=== PATIENT | female | born 1955 | race Caucasian/White ===

== ENCOUNTER 2019-05-29 20:30 | Emergency (ER) | payer OTHER, SELFPAY ==
[2019-05-29 20:34] VITALS: BP 103/85; PULSE 78; RESP 30; TEMP 36.3; O2SAT 97; BMI 26.0
[2019-05-29 21:20] LABS: Basophils % 0.4 %; Eosinophils % 0.1 %; Hematocrit 42.3 % (37.0-47.0); Hemoglobin 14.1 g/dL (11.5-15.3); Lymphocytes # 0.6 10^3/uL (0.8-4.8); Lymphocytes % 7.3 %; Mean Corpuscular HGB Conc 33.3 g/dL (30.0-36.0); Mean Corpuscular Hemoglobin 29.2 pg (28.0-34.0); Mean Corpuscular Volume 87.6 fL (81-99); Mean Platelet Volume 10.9 fL (7.4-10.4); Monocytes # 0.3 10^3/uL (0.2-0.9); Monocytes % 3.9 %; Neutrophils # 7.3 10^3/uL (1.8-7.7); Neutrophils % 88.1 %; Nucleated Red Blood Cells % 0 %; Platelet Count 206 10^3/cmm (130-400); Red Blood Count 4.83 10^6/uL (4.1-5.3); Red Cell Distribution Width 12.5 % (12.1-15.1); White Blood Count 8.2 10^3/uL (4.0-10.0)
[2019-05-29] MEDS: sodium chloride 0.9% 1,000 ML 999 ML IV (21:24)
[2019-05-29] MEDS: ondansetron 2 mg/ML SDV 2 mL 4 MG IVP (21:25)
--- NOTE | 2019-05-29 21:30 | W.ED.NAVMDI ---
HPI - Nausea/Vomiting/Diarrhea General: Chief complaint: Nausea/Vomiting/Diarrhea Stated complaint: n/v Time Seen by Provider: 05/29/19 20:55 Source: patient Mode of arrival: ambulatory Limitations: no limitations History of Present Illness: HPI Narrative: Patient is a 63-year-old female who presents to ED today with complaints of nausea, vomiting, and a migraine headache that began today. Patient states she has a history of migraine headaches and feels her headache currently feels similar. She denies abdominal pain but just has a empty nauseous feeling . She reports just a few episodes of actual vomiting and many episodes of dry heaving. Vomit has been nonbloody. She reports one episode of a loose stool earlier today. She has not been running fevers. Denies bad food exposure. MD elicited complaint: nausea and vomiting Onset (ago): hour(s) Associated nausea: Yes Associated abdominal pain: No Associated symtoms: Reports headache(s) and nausea; Denies change in vision, chest pain, dizziness, dysuria, fatigue, malaise, palpitations or syncope Review of Systems Const: Denies: fever, chills, body aches, fatigue or malaise Eyes: Denies: change in vision or blurry vision ENMT: Denies: enlarged tonsils or painful swallowing Card: Denies: chest pain, palpitations, irregular heart rhythm, lightheadedness, syncope or shortness of breath on exertion Resp: Denies: shortness of breath, productive cough or pain on inspiration GI: Reports: abdominal pain, nausea and vomiting; Denies: vomiting blood, difficulty swallowing, heartburn/indigestion, constipation, painful bowel movements, change in stool character, blood in stool or white/light colored stool : Denies: flank pain, difficulty urinating, painful urination, urinary frequency or urinary urgency Musc: Denies: neck pain, back pain or joint pain Skin/Breast: Denies: rash Neuro: Reports: headache; Denies: numbness in extremities, weakness in extremities, changes in sensation, lack of coordination, difficulty walking, dizziness, confusion, behavioral changes or slurred speech PFSH ED PFSH: Statuses (acute, chronic, etc) shown below reflect problem list status as previously entered and may not be historically accurate Social History Smoking and tobacco status: never smoked Physical Exam Const: COMMON NORMALS: no apparent distress, average body habitus, oriented x3, no limitations, healthy appearing, alert and well nourished HENMT: COMMON NORMALS: normocephalic, head/scalp atraumatic, hearing grossly normal bilaterally, external ears normal, EAC's normal, TM's normal bilaterally and oropharynx normal HEAD & SCALP: normocephalic and atraumatic EXTERNAL EAR: Yes external ears normal EXTERNAL AUDITORY CANAL: EAC's normal TYMPANIC MEMBRANE: TM's normal bilaterally THROAT: posterior oropharynx normal, tonsils normal and uvula midline Eye: COMMON NORMALS: PERRL and EOMs intact bilaterally PUPIL: Yes PERRL Neck/C-Spine: COMMON NORMALS: full ROM, no lymphadenopathy, supple and no meningeal signs Chest: COMMONS NORMALS: inspection of chest normal Resp: COMMON NORMALS: normal respiratory effort and clear to auscultation bilaterally AUSCULTATION: clear to auscultation bilaterally Cardio: COMMON NORMALS: regular rate and regular rhythm RATE: regular rate RHYTHM: regular rhythm GI: COMMON NORMALS: normal to inspection, nondistended, normoactive bowel sounds, soft to palpation, non-tender, no hepatosplenomegaly and no masses PALPATION: Yes soft and Yes no hepatosplenomegaly : COMMON NORMALS: Yes no CVA tenderness BLADDER/KIDNEY EXAM: Yes no CVA tenderness Back/Pelvis: COMMON NORMALS: no CVA tenderness and thoracic and lumbar spine normal to inspection Extremity: COMMON NORMALS: normal to inspection Neuro: EZRA COMA SCALE: document GCS findings Ezra coma scale eye opening: Spontaneous [place] coma scale verbal response: Orientated [place] coma scale motor response: Obey commands Ezra coma scale total score: 15 COMMON NORMALS: oriented x3, CN's II-XII intact bilaterally, moves all extremities, no focal motor deficits and no sensory deficits noted SENSORIUM/ORIENTATION: Yes alert MENINGEAL SIGNS: Yes no meningeal signs SPEECH: speech normal Skin: COMMON NORMALS: no rashes or lesions noted GENERAL SKIN EXAM: no rashes or lesions noted Course ED course: no vomiting while here; reports nausea/ZAMARRIPA improved after medications; she was given a liter of fluids here; labs are non-concerning; she is stable for DC Vital Signs: Vital signs: Vital Signs Temperature 97.4 F L 05/29/19 20:34 Pulse Rate 78 05/29/19 20:34 Respiratory Rate 18 05/29/19 21:41 Blood Pressure 103/85 05/29/19 20:34 Pulse Oximetry 98 05/29/19 21:41 MDM - Nausea/Vomiting/Diarrhea Lab Data: Labs: Lab Results 05/29/19 05/29/19 05/29/19 Range/Units 21:11 21:11 21:29 WBC 8.2 (4.0-10.0) 10^3/ uL RBC 4.83 (4.1-5.3) 10^6/u L Hgb 14.1 (11.5-15.3) g/dL Hct 42.3 (37.0-47.0) % MCV 87.6 (81-99) fL MCH 29.2 (28.0-34.0) pg MCHC 33.3 (30.0-36.0) g/dL RDW 12.5 (12.1-15.1) % Plt Count 206 (130-400) 10^3/c mm MPV 10.9 H (7.4-10.4) fL Neut % (Auto) 88.1 % Lymph % (Auto) 7.3 % [place] % (Auto) 3.9 % Eos % (Auto) 0.1 % Baso % (Auto) 0.4 % Neut # (Auto) 7.3 (1.8-7.7) 10^3/u L Lymph # (Auto) 0.6 L (0.8-4.8) 10^3/u L [place] # (Auto) 0.3 (0.2-0.9) 10^3/u L Eos # (Auto) 0.0 (0.0-0.8) 10^3/u L Baso # (Auto) 0.0 (0.0-0.1) 10^3/u L Nucleated RBC % (a uto) 0 % Nucleated RBCs # 0.0 /100WBC Sodium 136 (136-145) mmol/L Potassium 3.9 (3.5-5.1) mmol/L Chloride 99 (98-107) mmol/L Carbon Dioxide 21 L (22-29) mmol/L Anion Gap 19.9 H (5-19) BUN 18 (8-23) mg/dL Creatinine 0.7 (0.5-0.9) mg/dL GFR Calculation 84.2 L (90-130) mL/min Glucose 139 H (65-115) mg/dL Calcium 10.0 (8.5-10.5) mg/dL Total Bilirubin 0.7 (0.15-1.2) mg/dL AST 26 (0-32) U/L ALT 14 (0-33) U/L Alkaline Phosphata se 81 (35-105) IU/L Total Protein 8.0 (6.6-8.7) g/dL Albumin 4.5 (3.5-5.2) g/dL Globulin 3.5 (1.3-4.6) g/dL Lipase 23 (13-60) U/L Influenza Type A A g Negative (Negative) POC Influenza B Ag Negative (Negative) Discharge Plan Discharge Patient Disposition: Home, Self-Care Clinical Impression: Nausea & vomiting Qualifiers: Vomiting type: unspecified Vomiting Intractability: non-intractable Qualified Code(s): R11.2 - Nausea with vomiting, unspecified Condition: Stable Prescriptions: New ondansetron HCl [Zofran] 4 mg tablet 4 mg PO Q6H PRN (Reason: nausea and vomiting) Qty: 14 RF: 0 Discharge Orders: Discharge Order (Routine); Ordered 05/29/19 Ordered By: Sanaz Araiza Discharge Diet: Advance as tolerated Discharge Activity: Increase activity as tolerated Patient Instructions: Vomiting - Adult Activity Restrictions/Additional Instructions: Return to the emergency department for worsening vomiting, abdominal pain, fevers greater than 100.4, profuse diarrhea, or any other concerns you may have. Coding Level of Care Code ED Survey And Mapping Technician for Juan Snow
[2019-05-29 21:36] LABS: Alanine Aminotransferase 14 U/L (0-33); Albumin Level 4.5 g/dL (3.5-5.2); Alkaline Phosphatase 81 IU/L (35-105); Anion Gap 19.9 (5-19); Aspartate Amino Transferase 26 U/L (0-32); Blood Urea Nitrogen 18 mg/dL (8-23); Carbon Dioxide 21 mmol/L (22-29); Chloride 99 mmol/L (98-107); Globulin 3.5 g/dL (1.3-4.6); Glomerular Filtration Rate 84.2 mL/min (90-130); Glucose 139 mg/dL (65-115); Lipase 23 U/L (13-60); Potassium 3.9 mmol/L (3.5-5.1); Sodium 136 mmol/L (136-145); Total Bilirubin 0.7 mg/dL (0.15-1.2)
[2019-05-29 21:41] VITALS: RESP 18; O2SAT 98
[2019-05-29] MEDS: morphine 4 mg/mL SDV 1 mL 2 MG IVP (21:41)
[2019-05-29] MEDS: diphenhydrAMINE 50 mg/mL SDV 1mL 25 MG IVP (21:42)
[2019-05-29 21:53] LABS: Influenza A by IFA Negative (Negative); Influenza B by IFA Negative (Negative)
[2019-05-29 22:40] VITALS: BP 120/57; PULSE 58; RESP 18; O2SAT 96
== END 2019-05-29 22:41 | disposition home or self-care (01) ==
PROVIDERS: Emergency Provider Physician Assistant
DX: R11.2 Nausea with vomiting, unspecified (principal)
CPT/HCPCS: 80053; 83690; 85025; 87804; 96361; 96374; 96375; 99282; 99283; A9270; J1200; J2270; J2405; J7030

== ENCOUNTER 2021-04-22 13:40 | Emergency (ER) | payer OTHER, SELFPAY ==
--- NOTE | 2021-04-22 13:47 | XRR_ITS ---
PROCEDURE INFORMATION: Exam: XR Right Wrist Exam date and time: 04/22/2021 1:47 PM Age: 65 years old Clinical indication: Injury or trauma; Fall; Fracture, traumatic injury; Closed fracture; Wrist; Right; Additional info: Fall, injury, pain TECHNIQUE: Imaging protocol: XR Right wrist. Views: 3 or more views. COMPARISON: No relevant prior studies available. FINDINGS: Bones/joints: Normal. Soft tissues: Normal. XR/XR wrist RT min 3V* [id number] IMPRESSION: No acute findings.
[2021-04-22 13:52] VITALS: BP 152/74; PULSE 59; RESP 16; TEMP 36.9; O2SAT 100
--- NOTE | 2021-04-22 13:53 | XRR_ITS ---
PROCEDURE INFORMATION: Exam: XR Right Hand Exam date and time: 04/22/2021 1:53 PM Age: 65 years old Clinical indication: Injury or trauma; Fall; Blunt trauma (contusions or hematomas); Injury date: 04/22/2021; Injury details: Patient tells me while at home earlier today she accidentally fell down the stairs and injured her right wrist and hand; Additional info: Injury/fall TECHNIQUE: Imaging protocol: XR Right hand. Views: 3 or more views. Total images: 3 COMPARISON: No relevant prior studies available. FINDINGS: Bones/joints: Irregularity of the distal radius felt to represent sequela of remote trauma. No acute fracture nor subluxation. No osseous erosion nor periosteal reaction. Soft tissues: No adjacent soft tissue swelling. XR/XR hand RT min 3V* [id number] IMPRESSION: No acute osseous pathology.
--- NOTE | 2021-04-22 13:53 | ED_ITS ---
HPI - Extremity Injury (Upper) General: Chief Complaint: Fall Stated Complaint: fall, right wrist injury Time Seen by Provider: 04/22/21 13:53 Source: patient Mode of arrival: ambulatory Limitations: no limitations History of Present Illness: HPI narrative: Patient is a nice 65-year-old female who presents to ED today for evaluation of a right wrist injury. Patient tells me while at home earlier today she accidentally fell down the stairs and injured her right wrist and hand. No other injury sustained during the fall. complaint: injury to: right, wrist and hand Onset (ago): hour(s) Place: home Severity: moderate Relieving factors: immobilization Exacerbating factors: movement of extremity Context: fall Associated symptoms: Reports no associated symptoms; Denies neck pain or weakness in extremities Review of Systems Card: Denies: chest pain Resp: Denies: dyspnea GI: Denies: nausea or vomiting Musc: Reports: extremity pain (R hand) and joint pain (R wrist); Denies: neck pain or back pain Neuro: Denies: headache(s), numbness in extremities, weakness in extremities, sensory changes, difficulty walking, frequent falls or dizziness PFSH ED PFSH: Social History Smoking and tobacco status: never smoked Physical Exam Const: COMMON NORMALS: no acute distress, average body habitus, patient oriented x3, no limitations, healthy appearing, alert and well nourished HENMT: COMMON NORMALS: normocephalic and atraumatic HEAD & SCALP: normoc ephalic and atraumatic Neck/C-Spine: COMMON NORMALS: full ROM CERVICAL SPINE: No Cervical spine tenderness Chest: COMMONS NORMALS: normal inspection of the chest and normal palpation of entire chest wall Resp: COMMON NORMALS: normal respiratory effort Cardio: COMMON NORMALS: regular rate and regular rhythm RATE: regular rate RHYTHM: regular rhythm Back/Pelvis: COMMON NORMALS: thoracic and lumbar spine normal to inspection, no thoracic nor lumbar tenderness and thoraco-lumbar ROM normal Extremity: GENERAL: Yes normal exam except as noted RIGHT UPPER EXTREMITY: Yes wrist and Yes hand & digits OTHER: TTP R distal radial wrist; mild deformity noted; radial pulse normal; brisk cap refill; sensation intact Neuro: COMMON NORMALS: patient oriented x3, moves all extremities, no focal motor deficits, no sensory deficits noted and gait normal SENSORIUM/ORIENTATION: Yes alert Skin: COMMON NORMALS: no rashes or lesions noted GENERAL SKIN EXAM: no rashes or lesions noted TRAUMA: no lacerations or abrasions Course Vital Signs: Vital signs: Vital Signs Temperature 98.5 F 04/22/21 13:52 Pulse Rate 59 L 04/22/21 13:52 Respiratory Rate 16 04/22/21 13:52 Blood Pressure 152/74 04/22/21 13:52 Pulse Oximetry 100 04/22/21 13:52 MDM - Extremity Injury (Upper) Imaging Data^: XR R wrist/hand: My impression: non-displaced distal radial fracture Discharge Plan Discharge Patient Disposition: Home Clinical Impression: Closed fracture of right distal radius Qualifiers: Encounter type: initial encounter Fracture morphology: other fracture Qualified Code(s): S52.591A - Other fractures of lower end of right radius, initial encounter for closed fracture Condition: Stable Prescriptions: New hydrocodone-acetaminophen 5-325 mg tablet 1 tab PO Q6H PRN (Reason: pain) Qty: 14 RF: 0 No Action Zofran 4 mg tablet 4 mg PO Q6H PRN (Reason: nausea and vomiting) Qty: 14 RF: 0 Discharge Orders: Discharge ED (Routine); Ordered 04/22/21 Ordered By: Sanaz Araiza Referrals: Sajan Núñez MD [Primary Care Provider] - Patient Instructions: Wrist Fracture in Adults (ED) Activity Restrictions/Additional Instructions: As we discussed case management should contact you early this week to set you up with your follow-up orthopedic appointment. Coding Level of Care Code ED Stitching Machine Feeder Or Offbearer for Juan Snow Exam Comprehensive
--- NOTE | 2021-04-24 10:16 | DCPLANNER ---
area plant manager had message to schedule a follow up appointment for patient with ortho. area plant manager called the ortho clinic, spoke with Shannan, gave clinic patients information. area plant manager was told that patients information would be printed and reviewed. Clinic will call patient with appointment information.
--- NOTE | 2021-05-05 05:46 | DCPLANNER ---
Patient had a follow up appointment scheduled for 04.25.21 with George ALEJANDRO at ortho - patient did attend appointment.
== END 2021-04-22 18:03 | disposition home or self-care (01) ==
PROVIDERS: Emergency Provider Physician Assistant; PCP Family Medicine
DX: S52.591A Other fractures of lower end of right radius, initial encounter for closed fracture (principal); W10.8XXA Fall (on) (from) other stairs and steps, initial encounter
CPT/HCPCS: 29125; 73110; 73130; 99283

== ENCOUNTER 2021-04-25 15:49 | Outpatient (CLI) | payer OTHER, SELFPAY | END 2021-04-25 15:50 | disposition home or self-care (01) | LOC: SPT 15:50 | PROVIDERS: PCP Family Medicine; Visit Provider Physician Assistant | DX: Z46.89 Encounter for fitting and adjustment of other specified devices (principal); S52.591D Other fractures of lower end of right radius, subsequent encounter for closed fracture with routine healing; X58.XXXD Exposure to other specified factors, subsequent encounter | CPT/HCPCS: 97760; L3982 ==

== ENCOUNTER → 2021-05-16 10:07 | Outpatient (BNVA) | payer OTHER, SELFPAY | PROVIDERS: PCP Family Medicine; Visit Provider Physician Assistant | DX: S52.501A Unspecified fracture of the lower end of right radius, initial encounter for closed fracture (principal); X58.XXXA Exposure to other specified factors, initial encounter | CPT/HCPCS: 73100 ==

== ENCOUNTER → 2021-06-06 09:58 | Outpatient (BNVA) | payer OTHER, SELFPAY | PROVIDERS: PCP Family Medicine; Visit Provider Physician Assistant | DX: S52.501A Unspecified fracture of the lower end of right radius, initial encounter for closed fracture (principal); X58.XXXA Exposure to other specified factors, initial encounter | CPT/HCPCS: 73100 ==

== ENCOUNTER 2021-06-21 08:53 | Outpatient (RCR) | payer OTHER, SELFPAY | END 2021-07-20 23:59 | disposition home or self-care (01) | LOC: SOT 08:53 | PROVIDERS: PCP Family Medicine; Referring Provider Physician Assistant; Visit Provider Physician Assistant | DX: S52.501D Unspecified fracture of the lower end of right radius, subsequent encounter for closed fracture with routine healing (principal); X58.XXXD Exposure to other specified factors, subsequent encounter | CPT/HCPCS: 97165 ==

== ENCOUNTER → 2022-08-15 11:36 | Outpatient (BNVA) | payer OTHER, SELFPAY | PROVIDERS: PCP Family Medicine; Visit Provider Clinical Nurse Specialist Adult Health | DX: R35.0 Frequency of micturition (principal); N30.00 Acute cystitis without hematuria | CPT/HCPCS: 81000 ==

== ENCOUNTER → 2022-08-30 09:44 | Outpatient (BNVA) | payer OTHER, SELFPAY | PROVIDERS: PCP Family Medicine; Visit Provider Nurse Practitioner Family | DX: S96.911A Strain of unspecified muscle and tendon at ankle and foot level, right foot, initial encounter (principal); X58.XXXA Exposure to other specified factors, initial encounter | CPT/HCPCS: 73630 ==

== ENCOUNTER 2022-11-01 07:10 | Outpatient (CLI) | payer OTHER, SELFPAY ==
--- NOTE | 2022-11-01 07:19 | XRR_ITS ---
PROCEDURE INFORMATION: Exam: XR Right Foot Exam date and time: 11/01/2022 7:44 AM Age: 67 years old Clinical indication: Patient HX: Slipped out of truck and twisted right foot, has had pain a swelling since 08/2022; Additional info: Foot pain TECHNIQUE: Imaging protocol: Radiologic exam of the right foot. Views: 1 or 2 views. COMPARISON: CR XR foot RT min 3V* [id number] 08/30/2022 9:51 AM FINDINGS: Bones/joints: No fracture, dislocation or other acute bone or joint abnormality. Chronic degenerative joint disease is present predominantly in the 1st metatarsophalangeal joint. Soft tissues: Normal. XR/XR foot RT 2V [id number] IMPRESSION: No acute abnormality.
== END 2022-11-01 07:11 | disposition home or self-care (01) ==
PROVIDERS: PCP Family Medicine; Visit Provider Family Medicine
DX: M79.671 Pain in right foot (principal); M79.89 Other specified soft tissue disorders
CPT/HCPCS: 73620

== ENCOUNTER → 2023-07-24 12:46 | Outpatient (BNVA) | payer OTHER, SELFPAY | PROVIDERS: PCP Family Medicine; Visit Provider Family Medicine | DX: E78.5 Hyperlipidemia, unspecified (principal) | CPT/HCPCS: 80053; 80061 ==

== ENCOUNTER → 2024-01-21 09:51 | Outpatient (BNVA) | payer OTHER, SELFPAY | PROVIDERS: PCP Family Medicine; Visit Provider Family Medicine | DX: E78.5 Hyperlipidemia, unspecified (principal) | CPT/HCPCS: 80053; 80061 ==

== ENCOUNTER → 2025-01-07 11:06 | Outpatient (BNVA) | payer OTHER, SELFPAY | PROVIDERS: PCP Family Medicine; Visit Provider Family Medicine | DX: Z00.00 Encounter for general adult medical examination without abnormal findings (principal); E78.5 Hyperlipidemia, unspecified | CPT/HCPCS: 80053; 80061; 85025 ==